=== PATIENT | female | born 1990 | race Caucasian/White ===

== ENCOUNTER 2018-12-13 19:00 | Inpatient (IN) | payer OTHER ==
[~2018-12-13 19:00] MED LIST: DEXTROSE 5%-LACTATED RINGERS 1,000 ML IV SCH; DINOPROSTONE 10 MG VAGINAL SUPPOSITORY VG ONE
[2018-12-13] MEDS: DEXTROSE 5%-LACTATED RINGERS 1,000 ML IV SCH ×2 (20:40→23:30)
[2018-12-13 21:26] VITALS: BMI 26.5
[2018-12-13 21:32] LABS: BASO % 0.3 % (0-2.0); EOS % 0.6 % (0-4.5); HEMATOCRIT 33.4 % (32.4-45.2); HEMOGLOBIN 11.3 GM/dL (10.7-15.3); LYMPH % 28.7 % (8-40); MCH 31.6 pg (25.7-33.7); MCHC 33.8 g/dl (32.0-36.0); MEAN CELL VOLUME 93.6 fl (80-96); MEAN PLT VOLUME 10.7 fl (7.5-11.1); MONO % 7.3 % (3.8-10.2); NEUT % 63.1 % (42.8-82.8); PLATELET COUNT 128 K/MM3 (134-434); RBC 3.57 M/mm3 (3.60-5.2); RDW 12.8 % (11.6-15.6)
[2018-12-13 21:44] LABS: INR 1.03 (0.83-1.09); PROTHROMBIN TIME (PATIENT) 12.2 SEC (9.7-13.0)
[2018-12-13 21:47] LABS: ACTIVATED PTT 25.6 SECONDS (25.2-36.5); BLOOD UREA NITROGEN 11.7 mg/dL (7-18); CALCIUM 8.7 mg/dL (8.5-10.1); CREATININE 0.8 mg/dL (0.55-1.3)
[2018-12-14] MEDS: DEXTROSE 5%-LACTATED RINGERS 1,000 ML IV SCH (06:41)
[2018-12-14] MEDS ORDERED: PROMETHAZINE HCL 25 MG/1 ML VIAL IVPB PRN (10:54)
[2018-12-14] MEDS ORDERED: BUTORPHANOL TARTRATE 2 MG/ML VIAL IVPUSH PRN (10:54)
[2018-12-14] MEDS ORDERED: PROMETHAZINE HCL 25 MG/1 ML VIAL ONE (10:55)
[2018-12-14] MEDS ORDERED: BUTORPHANOL TARTRATE 1 MG/ML VIAL ONE ×2 (10:55)
[2018-12-14] MEDS ORDERED: DINOPROSTONE 10 MG VAGINAL SUPPOSITORY VG ONE (11:15)
[2018-12-14] MEDS ORDERED: CITRIC ACID/SODIUM CITRATE 30 ML UNIT-DOSE CUP PO ONE (15:17)
--- NOTE | 2018-12-14 15:25 | HP ---
Past Medical History - Admission Chief Complaint: Postterm History of Present Illness: 27 yo , @ 40 weeks gestation, EDC 12/13/18, admitted for induction of labor. History Source: Patient Limitations to Obtaining History: No Limitations - Past Medical History ...: 1 ...Para: 0 ...Term: 0 ...: 0 ...Spon : 0 ...Induced : 0 ...Multiple Gestation: 0 ...LMP: 03/08/18 ...EDC by Sono: 12/13/18 - Past Surgical History Past Surgical History: Yes: None Hx Myomectomy: No Hx Transabdominal Cerclage: No - Smoking History Smoking history: Never smoked Have you smoked in the past 12 months: No - Alcohol/Substance Use Hx Alcohol Use: No History of Substance Use: reports: None - Social History Usual Living Arrangement: Yes: With Significant Other History of Recent Travel: No Home Medications - Allergies Allergies/Adverse Reactions: Allergies Allergy/AdvReac Type Severity Reaction Status Date / Time No Known Drug Allergies Allergy Verified 12/14/18 08:11 - Home Medications Home Medications: Ambulatory Orders Ferrous Sulfate [Iron] 325 mg PO BID 12/13/18 Vitamins (Sjr) - 1 tab PO DAILY 12/13/18 Family Medical History Family History: Unremarkable Review of Systems - Review of Systems Constitutional: reports: No Symptoms Eyes: reports: No Symptoms HENT: reports: No Symptoms Neck: reports: No Symptoms Cardiovascular: reports: No Symptoms Respiratory: reports: No Symptoms Gastrointestinal: reports: No Symptoms Genitourinary: reports: No Symptoms Breasts: reports: No Symptoms Reported Musculoskeletal: reports: No Symptoms Integumentary: reports: No Symptoms Neurological: reports: No Symptoms Endocrine: reports: No Symptoms Hematology/Lymphatic: reports: No Symptoms Psychiatric: reports: No Symptoms Pain Intensity: 2 Physical Exam - Maternity Vital Signs: Vital Signs Temperature 98.2 F 12/14/18 14:00 Pulse Rate 66 12/14/18 15:00 Respiratory Rate 20 12/14/18 15:00 Blood Pressure 121/74 12/14/18 15:00 O2 Sat by Pulse Oximetry (%) Constitutional: Yes: Well Nourished Eyes: Yes: Conjunctiva Clear HENT: Yes: Atraumatic Neck: Yes: Supple Cardiovascular: Yes: Regular Rate and Rhythm Lungs: Clear to auscultation Breast(s): Yes: WNL - Abdominal Exam/OB Number of Fetuses: Single Presentation: Vertex - Physical Exam Musculoskeletal: Yes: WNL ...Motor Strength: WNL Psychiatric: Yes: Alert, Oriented - Labs Lab Results: CBC, BMP 12/13/18 20:45 12/13/18 20:45 Problem List - Problems (1) Postmaturity , 40-42 weeks gestation Code(s): O48.0 - POST-TERM Assessment/Plan Postterm Admit for cervidil induction
[2018-12-14] MEDS ORDERED: DEXTROSE 5%-LACTATED RINGERS 1,000 ML IV SCH (15:30)
[2018-12-14] MEDS ORDERED: ELECTROLYTE-148 SOLN 1,000 ML IV SCH (15:30)
--- NOTE | 2018-12-14 15:30 | PN ---
Progress Note (short form) - Note Progress Note: Patient seen and evaluated, she c/o moderate discomfort. Cervidil removed. Patient is contemplating . She had breakfast at 8: 30am. She was advised to have a second cervidil. FHR : Reassuring [place] : + regular contractions VE : /-2 A/P : Post term Cervidil # 2 at 10:50am Stadol and Phenergan for pain Re evaluate in 12 hours or before if indicated Problem List - Problems (1) Postmaturity , 40-42 weeks gestation Code(s): O48.0 - POST-TERM
--- NOTE | 2018-12-14 15:33 | PN ---
Progress Note (short form) - Note Progress Note: Patient called to request because pain is not relieved with stadol. FHR : Reassuring [place] : + regular contractions VE : /-2 A/P : Post term Failed medical induction Pre op for Consent signed Anesthesia to see patient Problem List - Problems (1) Postmaturity , 40-42 weeks gestation Code(s): O48.0 - POST-TERM
[2018-12-14] MEDS ORDERED: morphine SULFATE/PF 0.5 MG/ML (2cc Syringe - QUVA) ONE (16:59)
[2018-12-14] MEDS ORDERED: OXYTOCIN 20 UNITS in 0.9% NS 20 UNIT/1,000 ML INFUS.BAG IV ONE (17:06)
[2018-12-14] MEDS ORDERED: ceFAZolin SODIUM 1 GM VIAL ONE (17:06)
[2018-12-14] MEDS ORDERED: SODIUM CHLORIDE 0.9% P/F 10 ML VIAL IJ ONE (17:06)
[2018-12-14] MEDS ORDERED: morphine SULFATE/PF 0.5 MG/ML (2cc Syringe - QUVA) EP ONE (17:10)
[2018-12-14] MEDS ORDERED: PHENYLEPHRINE HCL 10 MG/1 ML SINGLE DOSE VIAL ONE (17:34)
[2018-12-14] MEDS ORDERED: OXYTOCIN 10 UNITS/ML VIAL ONE (17:34)
[2018-12-14] MEDS ORDERED: KETOROLAC TROMETHAMINE 30 MG/1 ML VIAL ONE (17:34)
[2018-12-14] MEDS ORDERED: IBUPROFEN 800 MG/8 ML IJ IVPB PRN (18:01)
[2018-12-14] MEDS ORDERED: METHYLERGONOVINE MALEATE 0.2 MG/1 ML AMP IM PRN (18:01)
--- NOTE | 2018-12-14 18:01 | PN ---
Progress Note (short form) - Note Progress Note: I assisted at primary c/section for the entirety of the case.
--- NOTE | 2018-12-14 18:05 | OP ---
Operative Note - Note: Operative Date: 12/14/18 Pre-Operative Diagnosis: Failed medical induction Operation: Primary Low Transverse Findings: Large baby boy in cephallic presentation Post-Operative Diagnosis: Same as Pre-op Surgeon: Kailee Geronimo Radiographer Mammographer: Obie Frank Anesthesia: Spinal Specimens Removed: Placenta Estimated Blood Loss (mls): 600 Operative Report Dictated: Yes
[2018-12-14] MEDS ORDERED: ONDANSETRON 4 MG/2 ML VIAL IVPUSH PRN (18:12)
[2018-12-14] MEDS ORDERED: ACETAMINOPHEN 1000 MG/100 ML VIAL (NON FORMULARY) IVPB ONE (18:15)
[2018-12-14] MEDS ORDERED: OXYTOCIN 20 UNITS in 0.9% NS 20 UNIT/1,000 ML INFUS.BAG IV SCH (18:15)
[2018-12-14] MEDS ORDERED: LACTATED RINGERS SOLUTION 1,000 ML IV SCH (18:15)
--- NOTE | 2018-12-14 18:45 | OP ---
DATE OF OPERATION: 12/14/2018 PREOPERATIVE DIAGNOSIS: Forty weeks' gestation, failed medical induction. POSTOPERATIVE DIAGNOSIS: Forty weeks' gestation, failed medical induction. PROCEDURE PERFORMED: Primary low transverse section. SURGEON: Kailee Geronimo M.D. BRAILLE PROOFREADER: Obie Spivey ANESTHESIA: Spinal. COMPLICATIONS: None. ESTIMATED BLOOD LOSS: 600 mL. DESCRIPTION OF PROCEDURE: The patient was taken to the operating room, where spinal anesthesia was administered. The patient was then prepped and draped in the proper sterile fashion. A Pfannenstiel skin incision was made and carried down through the underlying layer of fascia. The fascia was incised in the midline and extended laterally. The superior aspect of the fascial incision was then grasped with a June clamp, elevated, and the rectus muscle dissected off bluntly. Attention was then turned to the inferior aspect of the fascial incision, which, in a similar fashion, was then grasped with a June clamp, elevated, and the rectus muscle dissected off bluntly. The rectus muscle was then in the midline. The peritoneum was identified and entered sharply with Metzenbaum scissors. This incision was extended superiorly and inferiorly, with good visualization of the bladder. The vesicouterine peritoneum was then grasped with a pickup and entered sharply with Metzenbaum scissors. This incision was extended laterally and a bladder flap created digitally. A bladder blade was inserted. Then the lower uterine segment was incised with a 10 blade. This incision was extended laterally and the fetus was delivered atraumatically. The nose and mouth were suctioned and the cord clamped and cut. The was handed to the awaiting e business specialist. The placenta was removed manually. The uterus was exteriorized and cleared of all clots and debris. The uterine incision was repaired using 0 Biosyn in a running locked fashion. A second layer of the same suture was used as a means to provide excellent hemostasis. The pelvis was then completely irrigated. The uterus was returned to the abdomen. The peritoneum was closed using 2-0 Biosyn. The fascia was reapproximated using 0 Vicryl in a running fashion. The skin was closed in subcuticular fashion using 3-0 Vicryl. The patient tolerated the procedure well. She was taken to the PACU in stable condition. PATHOLOGY: Placenta. KAILEE GERONIMO M.D. HIMANSHU/[id number] MTDD
[2018-12-14] MEDS: FERROUS SO4 325 MG TABLET (FP) PO SCH (22:00)
[2018-12-15 08:18] LABS: BASO % 0.3 % (0-2.0); EOS % 0.4 % (0-4.5); HEMATOCRIT 36.7 % (32.4-45.2); HEMOGLOBIN 12.4 GM/dL (10.7-15.3); LYMPH % 16.7 % (8-40); MCH 31.8 pg (25.7-33.7); MCHC 33.9 g/dl (32.0-36.0); MEAN PLT VOLUME 10.2 fl (7.5-11.1); NEUT % 75.6 % (42.8-82.8); PLATELET COUNT 108 K/MM3 (134-434); RDW 12.4 % (11.6-15.6); WHITE BLOOD COUNT 9.7 K/mm3 (4.0-10.0)
--- NOTE | 2018-12-15 10:44 | PN ---
Progress Note (short form) - Note Progress Note: Anesthesia postop note 27 y/o F s/p spinal anesthesia/ duramorph for section POD#1, vss, aaox3, pain well controlled, sensory motor intact distally No anesthesia complications.
[2018-12-15] MEDS: PRENATAL VITAMINS W/ FOLIC ACID TABLET (FP) PO SCH (11:15)
[2018-12-15] MEDS: FERROUS SO4 325 MG TABLET (FP) PO SCH ×2 (11:36→22:47)
[2018-12-15] MEDS: IBUPROFEN 600 MG TABLET (FP) PO PRN ×3 (12:47→22:48)
[2018-12-15] MEDS: oxyCODONE HCL 5 MG TABLET PO PRN ×3 (12:48→22:47)
[2018-12-15] MEDS ORDERED: BISACODYL 10 MG SUPP.RECT RC PRN (18:02)
--- NOTE | 2018-12-15 18:58 | PN ---
Post Progress Note - Subjective Subjective: 27 yo Para 1 status post primary , seen and evaluated. She c/o incision pain. Post Day: 1 Type of Delivery: Primary C/S Vital Signs: Vital Signs Temperature 97.8 F 12/15/18 18:00 Pulse Rate 50 L 12/15/18 18:00 Respiratory Rate 20 12/15/18 18:00 Blood Pressure 117/70 12/15/18 18:00 O2 Sat by Pulse Oximetry (%) 98 12/15/18 06:25 Breast Exam: Yes: Soft Uterus: Yes: Fundus @ umbilicus Incision: Yes: Dressing dry and intact Abdomen/GI: Yes: Abdomen soft, Tolerating PO Lochia: Yes: Rubra Lochia, amount: Small Extremities: Yes: Calves non-tender Activity: Ambulating - Labs Labs: CBC WBC 9.7 K/mm3 (4.0-10.0) 12/15/18 07:50 RBC 3.90 M/mm3 (3.60-5.2) 12/15/18 07:50 Hgb 12.4 GM/dL (10.7-15.3) 12/15/18 07:50 Hct 36.7 % (32.4-45.2) 12/15/18 07:50 MCV 94.0 fl (80-96) 12/15/18 07:50 MCH 31.8 pg (25.7-33.7) 12/15/18 07:50 MCHC 33.9 g/dl (32.0-36.0) 12/15/18 07:50 RDW 12.4 % (11.6-15.6) 12/15/18 07:50 Plt Count 108 K/MM3 (134-434) L 12/15/18 07:50 MPV 10.2 fl (7.5-11.1) 12/15/18 07:50 Absolute Neuts (auto) 7.3 K/mm3 (1.5-8.0) 12/15/18 07:50 Neutrophils % 75.6 % (42.8-82.8) 12/15/18 07:50 Lymphocytes % 16.7 % (8-40) D 12/15/18 07:50 Monocytes % 7.0 % (3.8-10.2) 12/15/18 07:50 Eosinophils % 0.4 % (0-4.5) 12/15/18 07:50 Basophils % 0.3 % (0-2.0) 12/15/18 07:50 Nucleated RBC % 0 % (0-0) 12/15/18 07:50 Problem List - Problems (1) Postmaturity , 40-42 weeks gestation Code(s): O48.0 - POST-TERM (2) Status post primary low transverse section Code(s): Z98.891 - HISTORY OF UTERINE SCAR FROM PREVIOUS SURGERY Assessment/Plan Status post Ambulation Analgesia as needed Continue routine post op care
[2018-12-15] MEDS: SIMETHICONE 80 MG TAB.CHEW (FP) PO PRN (22:47)
[2018-12-16] MEDS: IBUPROFEN 600 MG TABLET (FP) PO PRN ×3 (08:13→19:24)
[2018-12-16] MEDS: SIMETHICONE 80 MG TAB.CHEW (FP) PO PRN ×3 (08:14→19:24)
[2018-12-16] MEDS: FERROUS SO4 325 MG TABLET (FP) PO SCH ×2 (10:10→21:22)
[2018-12-16] MEDS: PRENATAL VITAMINS W/ FOLIC ACID TABLET (FP) PO SCH (10:10)
[2018-12-16] MEDS: oxyCODONE HCL 5 MG TABLET PO PRN ×3 (10:14→19:24)
--- NOTE | 2018-12-16 13:08 | PN ---
Post Note - Post Date of Delivery: 12/14/18 Vital Signs: Vital Signs - 24 hr 12/15/18 12/15/18 12/15/18 14:00 18:00 22:00 Temperature 98.0 F 97.8 F 98.7 F Pulse Rate 55 L 50 L 54 L Respiratory 20 20 18 Rate Blood Pressure 115/72 117/70 114/74 12/16/18 10:00 Temperature 98.4 F Pulse Rate 74 Respiratory 18 Rate Blood Pressure 123/74 - Subjective Subjective: No Complaints - Objective Afebrile: No Breast: Not engorged Abdomen: Soft, Non-tender Uterus: Fundus firm Vagina: Scant lochia Extremities: Non-tender - Assessment/Plan (1) Status post primary low transverse section Assessment: Other (POD2) Plan: Routine Care
[2018-12-17] MEDS: SIMETHICONE 80 MG TAB.CHEW (FP) PO PRN ×5 (00:10→23:25)
[2018-12-17] MEDS: IBUPROFEN 600 MG TABLET (FP) PO PRN ×5 (00:11→23:25)
[2018-12-17] MEDS: oxyCODONE HCL 5 MG TABLET PO PRN (00:11)
[2018-12-17] MEDS: ACETAMINOPHEN 325 MG TABLET (FP) PO PRN ×4 (06:42→23:25)
--- NOTE | 2018-12-17 08:38 | PN ---
Post Note - Post Date of Delivery: 12/14/18 Vital Signs: Vital Signs - 24 hr 12/16/18 12/16/18 10:00 22:00 Temperature 98.4 F 97.5 F L Pulse Rate 74 74 Respiratory 18 18 Rate Blood Pressure 123/74 120/76 - Subjective Subjective: No Complaints, Ambulating - Objective Afebrile: Yes Breast: Not engorged Abdomen: Soft Uterus: Fundus firm Vagina: Scant lochia Extremities: Non-tender - Assessment/Plan (1) Status post primary low transverse section Assessment: Other (POD3) Plan: Routine Care
[2018-12-17 09:10] LABS: BASO % 0.4 % (0-2.0); EOS % 1.4 % (0-4.5); HEMATOCRIT 32.8 % (32.4-45.2); HEMOGLOBIN 11.3 GM/dL (10.7-15.3); LYMPH % 38.5 % (8-40); MCHC 34.4 g/dl (32.0-36.0); MEAN CELL VOLUME 92.9 fl (80-96); MONO % 7.4 % (3.8-10.2); NEUT % 52.3 % (42.8-82.8); PLATELET COUNT 131 K/MM3 (134-434); RBC 3.53 M/mm3 (3.60-5.2); RDW 12.8 % (11.6-15.6); WHITE BLOOD COUNT 5.8 K/mm3 (4.0-10.0)
[2018-12-17] MEDS: PRENATAL VITAMINS W/ FOLIC ACID TABLET (FP) PO SCH (10:02)
[2018-12-17] MEDS: FERROUS SO4 325 MG TABLET (FP) PO SCH ×2 (10:02→22:00)
--- NOTE | 2018-12-17 20:34 | DS ---
Physical Exam-VP TREASURER Vital Signs: Vital Signs Temperature 98.4 F 12/17/18 09:02 Pulse Rate 56 L 12/17/18 09:02 Respiratory Rate 18 12/17/18 09:02 Blood Pressure 129/58 L 12/17/18 09:02 O2 Sat by Pulse Oximetry (%) 98 12/15/18 06:25 Constitutional: Yes: Well Nourished Eyes: Yes: Conjunctiva Clear HENT: Yes: Atraumatic Neck: Yes: Supple Cardiovascular: Yes: Regular Rate and Rhythm Respiratory: Yes: Regular Gastrointestinal: Yes: Normal Bowel Sounds ...Rectal Exam: Yes: WNL Renal/: Yes: WNL Pelvis: Yes: WNL External Genitalia: Yes: Normal Vaginal Exam: Yes: Normal Cervix: Yes: Normal Uterus: Yes: Firm Breast(s): Yes: WNL Musculoskeletal: Yes: WNL Extremities: Yes: WNL Wound/Incision: Yes: Well Approximated, Sutures Intact Neurological: Yes: Alert, Oriented ...Motor Strength: WNL Psychiatric: Yes: Alert, Oriented Labs: CBC, BMP 12/17/18 06:50 12/13/18 20:45 Delivery - Delivery Type of Anesthesia: Spinal Episiotomy/Laceration: None EBL (cc): 500 Delivery, Single - Stages of Labor Date of Delivery: 12/14/18 Time of Delivery: 17:24 Time Placenta Delivered: 17:25 - Condition of Technical Staff Engineer/Cleaning Staff Supervisor Present: No Infant Gender: Male Weight: 8 lb 4 oz Total Hours ROM (Hrs/Mins): 0/01 - 1 Minute Total Score: 9 5 Minutes Total Score: 9 - Feeding Plan Initial Plan: Exclusive throughout hospitalization Discharge Summary Problems reviewed: Yes Reason For Visit: INDUCTION OF LABOR Current Active Problems Postmaturity , 40-42 weeks gestation (Acute) Status post primary low transverse section (Acute) Procedures: Principal: Primary Low Transverse Hospital Course: Routine post op care Health Concerns: None Plan of Treatment: Routine care Goals: Routine care Condition: Good - Instructions Diet, Activity, Other Instructions: Regular diet No driving, no lifting x 4 weeks. F/U with MD in 2 weeks Disposition: HOME - Home Medications Comprehensive Discharge Medication List: Ambulatory Orders Ferrous Sulfate [Iron] 325 mg PO BID 12/13/18 Vitamins (Sjr) - 1 tab PO DAILY 12/13/18
[2018-12-18] MEDS: IBUPROFEN 600 MG TABLET (FP) PO PRN ×2 (07:59→16:02)
[2018-12-18] MEDS: ACETAMINOPHEN 325 MG TABLET (FP) PO PRN ×2 (07:59→16:03)
[2018-12-18] MEDS: SIMETHICONE 80 MG TAB.CHEW (FP) PO PRN ×2 (08:00→16:02)
[2018-12-18] MEDS: FERROUS SO4 325 MG TABLET (FP) PO SCH (10:49)
[2018-12-18] MEDS: PRENATAL VITAMINS W/ FOLIC ACID TABLET (FP) PO SCH (10:49)
[2018-12-18 12:19] VITALS: BP 111/68; PULSE 66; TEMP 98.2
--- NOTE | 2018-12-19 11:00 | PATH ---
Surgical Pathology Report Patient Name: NADIA CARDENAS Med. Rec. #: [id number] /Age/Gender: 1990 (Age: 27) / F Account: [id number] Location: [facility] OBS/DRYER OPERATOR Taken: 12/14/2018 Received: 12/15/2018 Reported: 12/19/2018 Physicians: Kailee Geronimo M.D. Specimen(s) Received PLACENTA Clinical History Primary Final Diagnosis PLACENTA: THIRD TRIMESTER PLACENTA. TRIVASCULAR CORD. MEMBRANES WITH NO DIAGNOSTIC ABNORMALITIES. Electronically Signed Codie Moreira M.D. Gross Description The specimen is received fresh labeled placenta and is a 464 gram, 18 x17 x 1.8cm. placenta with attached membranes and umbilical cord. The attached membranes are glistening, translucent, and insert marginally. The umbilical cord measures 15 cm. in length and averages 1.0 cm. in diameter. The cord inserts centrally, 4 centimeter to the nearest margin. No true knots or strictures are identified. Cut surface of the umbilical cord reveals 3 vessels. Sectioning reveals red-brown, spongy parenchyma. No lesions are identified. Automatic Lehr Operator sections are submitted in three cassettes as follows: 1- membrane rolls and umbilical cord; 2-3- full thickness sections of placenta KWS/12/15/2018 deviki/12/15/2018
== END 2018-12-18 17:15 | disposition home or self-care (01) | DRG 540 ==
LOC: JLDR 19:00 → J3W 12-14 20:15
PROVIDERS: ADMIT Obstetrics & Gynecology; ATTEND Obstetrics & Gynecology
PROC: 10D00Z1 Extraction of Products of Conception, Low, Open Approach (ICD-10-PCS; principal; 2018-12-14)
PROC: 3E0P7VZ Introduction of Hormone into Female Reproductive, Via Natural or Artificial Opening (ICD-10-PCS; 2018-12-14)
DX: O48.0 Post-term pregnancy (principal); O62.0 Primary inadequate contractions; Z3A.40 40 weeks gestation of pregnancy; Z37.0 Single live birth
CPT/HCPCS: 36415; 80048; 85025; 85610; 85730; 86593; 86850; 86900; 86901; 87389; 88307-TC; J0131

== ENCOUNTER 2021-04-22 12:41 | Emergency (ER) | payer OTHER ==
[2021-04-22 13:09] VITALS: BP 132/85; PULSE 84; TEMP 98; BMI 22.3
[2021-04-22 13:48] LABS: EPI CELLS 15 /uL (0-25.1); HYALINE CASTS 1 /uL (0-3.1); PH,URINE 7.5 (5.0-8.0); URINE APPEARANCE CLEAR; URINE BACTERIA 237 /uL (0-1359); URINE BILIRUBIN NEGATIVE (NEGATIVE); URINE COLOR YELLOW; URINE GLUCOSE (UA) NEGATIVE (NEGATIVE); URINE KETONE NEGATIVE (NEGATIVE); URINE LEUK ESTERASE TRACE (NEGATIVE); URINE NITRITE NEGATIVE (NEGATIVE); URINE PROTEIN NEGATIVE (NEGATIVE); URINE RBC 3 /uL (0-23.9); URINE UROBILINOGEN 0.2 mg/dL (0.2-1.0); URINE WBC 26 /uL (0-25.8)
== END 2021-04-22 18:48 | disposition home or self-care (01) ==
LOC: JERFT 12:41
DX: O26.891 Other specified pregnancy related conditions, first trimester (principal); M54.50 Low back pain, unspecified; Z3A.01 Less than 8 weeks gestation of pregnancy
CPT/HCPCS: 36415; 76817-TC; 81003; 84702; 84703; 99284-25

== ENCOUNTER 2021-04-23 18:37 | Emergency (ER) | payer OTHER ==
[2021-04-23 18:49] VITALS: BP 126/83; PULSE 81; TEMP 98.1; BMI 22.3
[2021-04-23] MEDS ORDERED: ACETAMINOPHEN 500 MG TABLET (FP) PO ONE (20:26)
[2021-04-23] MEDS ORDERED: ACETAMINOPHEN 500 MG TABLET (FP) ONE (20:32)
[2021-04-23 21:04] LABS: BASO % 0.7 % (0-2.0); EOS % 1.1 % (0-4.5); HEMATOCRIT 36.2 % (32.4-45.2); HEMOGLOBIN 12.3 GM/dL (10.7-15.3); LYMPH % 44.3 % (8-40); MCH 29.5 pg (25.7-33.7); MCHC 34.1 g/dl (32.0-36.0); MEAN CELL VOLUME 86.3 fl (80-96); MEAN PLT VOLUME 9.9 fl (7.5-11.1); MONO % 8.9 % (3.8-10.2); PLATELET COUNT 183 10^3/uL (134-434); RBC 4.19 M/mm3 (3.60-5.2); RDW 13.9 % (11.6-15.6); WHITE BLOOD COUNT 6.1 K/mm3 (4.0-10.0)
[2021-04-23 21:20] LABS: CALCIUM 9.2 mg/dL (8.5-10.1)
[2021-04-23 21:24] LABS: CREATININE 0.8 mg/dL (0.55-1.3)
== END 2021-04-23 23:47 | disposition home or self-care (01) ==
LOC: JER 18:37
DX: O03.9 Complete or unspecified spontaneous abortion without complication (principal); Z3A.00 Weeks of gestation of pregnancy not specified
CPT/HCPCS: 36415; 80048; 84702; 85025; 86850; 86900; 86901; 99283-25

== ENCOUNTER 2024-02-16 05:47 | Observation (INO) | payer OTHER ==
[2024-02-16 06:16] VITALS: BMI 21.4
[2024-02-16] MEDS ORDERED: METOCLOPRAMIDE HCL INJECTION 10 MG/2 ML VIAL ONE (06:27)
[2024-02-16] MEDS: METOCLOPRAMIDE HCL INJECTION 10 MG/2 ML VIAL IVPUSH ONE (06:33)
[2024-02-16 06:34] LABS: BASO % 0.6 % (0-2.0); EOS % 1.8 % (0-4.5); HEMATOCRIT 38.9 % (32.4-45.2); HEMOGLOBIN 12.6 GM/dL (10.7-15.3); LYMPH % 21.7 % (8-40); MCH 28.6 pg (25.7-33.7); MCHC 32.3 g/dl (32.0-36.0); MEAN CELL VOLUME 88.8 fl (80-96); MONO % 5.1 % (3.8-10.2); NEUT % 70.8 % (42.8-82.8); PLATELET COUNT 200 10^3/uL (134-434); RBC 4.38 M/mm3 (3.60-5.2); RDW 13.8 % (11.6-15.6); WHITE BLOOD COUNT 7.2 K/mm3 (4.0-10.0)
[2024-02-16] MEDS: KETOROLAC TROMETHAMINE 15 MG/ML VIAL IVPUSH ONE (06:35)
[2024-02-16 06:40] LABS: INR 1.07 (0.83-1.09); PROTHROMBIN TIME (PATIENT) 12.3 SEC (9.7-13.0)
[2024-02-16 06:50] LABS: POTASSIUM 3.6 mmol/L (3.5-5.1)
[2024-02-16 06:52] LABS: CALCIUM 9.1 mg/dL (8.5-10.1)
[2024-02-16 06:53] LABS: BLOOD UREA NITROGEN 21.7 mg/dL (7-18)
[2024-02-16 06:56] LABS: CREATININE 0.7 mg/dL (0.55-1.3)
[2024-02-16 06:58] LABS: TOT PROT 7.6 g/dl (6.4-8.2)
[2024-02-16] MEDS ORDERED: ACETAMINOPHEN INJECTION 100 ML ONE (09:03)
[2024-02-16] MEDS: ACETAMINOPHEN 1000 MG/100 ML BAG IVPB ONE (09:14)
[2024-02-16] MEDS ORDERED: ENOXAPARIN NA (PORCINE) 40 MG/0.4 ML DISP.SYRIN SQ ONE (13:08)
[2024-02-16] MEDS: ENOXAPARIN NA (PORCINE) 40 MG/0.4 ML DISP.SYRIN SQ SCH (13:17)
[2024-02-16] MEDS ORDERED: FAMOTIDINE 20 MG TABLET ONE (17:31)
[2024-02-16] MEDS: FAMOTIDINE 20 MG TABLET PO ONE (17:40)
[2024-02-16] MEDS: ACETAMINOPHEN 1000 MG/100 ML BAG IVPB PRN (19:48)
[2024-02-16 23:53] VITALS: RESP 18
[2024-02-17 08:42] LABS: HEMATOCRIT 35.9 % (32.4-45.2); HEMOGLOBIN 11.7 GM/dL (10.7-15.3); MCH 28.8 pg (25.7-33.7); MCHC 32.5 g/dl (32.0-36.0); MEAN CELL VOLUME 88.5 fl (80-96); MEAN PLT VOLUME 9.5 fl (7.5-11.1); PLATELET COUNT 219 10^3/uL (134-434); RBC 4.05 M/mm3 (3.60-5.2); RDW 14.2 % (11.6-15.6); WHITE BLOOD COUNT 6.7 K/mm3 (4.0-10.0)
[2024-02-17 08:47] VITALS: TEMP 98.2
[2024-02-17 08:48] LABS: POTASSIUM 3.6 mmol/L (3.5-5.1)
[2024-02-17 08:57] LABS: ALBUMIN 3.6 g/dl (3.4-5.0)
[2024-02-17 08:58] LABS: BLOOD UREA NITROGEN 13.9 mg/dL (7-18)
[2024-02-17 08:59] LABS: MAGNESIUM 2.1 mg/dL (1.8-2.4)
[2024-02-17 09:01] LABS: CALCIUM 8.7 mg/dL (8.5-10.1); CREATININE 0.6 mg/dL (0.55-1.3); PHOSPHOROUS 2.9 mg/dL (2.5-4.9)
[2024-02-17 09:02] LABS: TOT PROT 6.9 g/dl (6.4-8.2)
[2024-02-17 09:16] LABS: BILIRUBIN,TOTAL 2.4 mg/dL (0.2-1)
[2024-02-17] MEDS: ACETAMINOPHEN 325 MG TABLET (FP) PO ONE (11:22)
[2024-02-17 12:36] LABS: BILIRUBIN,DIRECT 0.4 mg/dL (0.0-0.2)
[2024-02-17 14:57] VITALS: BP 95/57; PULSE 66
== END 2024-02-17 15:10 | disposition home or self-care (01) ==
LOC: JER 05:47 → JERBED 08:56 → J4S 17:58
PROVIDERS: ADMIT Internal Medicine; ATTEND Internal Medicine
PROC: 3E033NZ Introduction of Analgesics, Hypnotics, Sedatives into Peripheral Vein, Percutaneous Approach (ICD-10-PCS; principal; 2024-02-16)
PROC: 3E023GC Introduction of Other Therapeutic Substance into Muscle, Percutaneous Approach (ICD-10-PCS; 2024-02-16)
PROC: 3E033GC Introduction of Other Therapeutic Substance into Peripheral Vein, Percutaneous Approach (ICD-10-PCS; 2024-02-16)
DX: M79.10 Myalgia, unspecified site (principal); M25.512 Pain in left shoulder; R07.1 Chest pain on breathing
CPT/HCPCS: 36415; 71046-TC-FY; 80053; 82248; 83615; 83735; 84100; 84484; 84703; 85025; 85027; 85379; 85610; 85730; 93005; 93010; 96372; 96374; 96375; 96376; 99285-25; G0378; J0131